=== PATIENT | female | born 1980 | race Caucasian/White ===

== ENCOUNTER 2017-01-12 20:02 | Emergency (ER) | payer OTHER ==
[~2017-01-12] VITALS: Ht 170.2 cm; Wt 80.7 kg
[2017-01-12 20:14] VITALS: TEMP 36.3; Ht 170.2 cm; Wt 80.7 kg
--- NOTE | 2017-01-12 20:49 | EMERGENCY ROOM VISIT NOTE ---
History Report prepared by Raghav: Zechariah Martin Under the Supervision of: Dr. Abner Cuevas M.D. First contact with patient: 20:36 Chief Complaint: HEAD INJURY (MINOR) Stated Complaint: CONCUSSION History of Present Illness The patient is a 36 year old female who presents to the Emergency Room with complaints of a minor head injury that occurred a couple of hours ago. She rates her pain a 7/10 in severity. Today, she remodelled her kitchen with her . After it was finished, she was putting dishes away in her cabinet when it fell partially off the wall and hit her in the head. The dishes also hit her in the head as well. She then began to be nauseated and vomited. Her head is still hurting. She notes fatigue as well. She denies any other pain or abnormal symptoms. She has a history of concussions that occurred when she was a child, but nothing recently. Source of History: patient Onset: a couple of hours ago Position: head Symptom Intensity: 7/10 Quality: ache Timing: constant Associated Symptoms: + fatigue, + nausea, + vomiting, No abdominal pain, No back pain, No chest pain, No neck pain, No urinary symptoms Review of Systems See HPI for pertinent positives & negatives. A total of 10 systems reviewed and were otherwise negative. Past Medical & Surgical Medical Problems: (1) Hypovolemia Family History Diabetes mellitus Social History Smoking Status: Current Every Day Smoker Smokeless Tobacco Use: Yes Alcohol Use: none Drug Use: none Marital Status: Housing Status: lives with family Occupation Status: employed Current/Historical Medications No Active Prescriptions or Reported Meds Allergies Coded Allergies: Mushroom (Verified Allergy, Intermediate, Nausea, 01/12/17) Physical Exam Vital Signs Date Time Temp Pulse Resp B/P Pulse Ox O2 Delivery O2 Flow Rate FiO2 01/12/17 22:09 62 18 114/72 98 01/12/17 20:14 36.3 93 18 132/91 99 Room Air Physical Exam GENERAL: Patient is uncomfortable appearing and in moderate acute distress. HEENT: No acute trauma, normocephalic atraumatic, mucous membranes moist, no nasal congestion, no scleral icterus. Mild photophobia. NECK: No stridor, no adenopathy, no meningismus, trachea is midline. LUNGS: No dyspnea. Clear to auscultation and equal bilaterally. No wheeze, no rhonchi. HEART: Regular rate and rhythm. No murmurs, rubs, gallops appreciated. ABDOMEN: Soft, nontender, bowel sounds positive, no masses appreciated, no peritonitis. BACK: No midline tenderness, no CVA tenderness EXTREMITIES: Normal motion all extremities, no cyanosis, no edema. NEUROLOGIC: Alert and oriented, no acute motor or sensory deficits, no focal weakness, cranial nerves grossly intact. GCS 15. SKIN: No rash, no jaundice, no diaphoresis. Medical Decision & Procedures ER Provider Diagnostic Interpretation: Radiology results are stated below per my review and radiologist interpretation: CT HEAD WITHOUT CONTRAST (CT) CLINICAL HISTORY: Left frontal head trauma. Vomiting, dizziness, photophobia. COMPARISON STUDY: No previous studies for comparison. TECHNIQUE: Axial CT of the brain is performed from the vertex to the skull base. IV contrast was not administered for this examination. CT DOSE: 614.27 mGy.cm FINDINGS: No intra or extra-axial mass lesions are visualized. There is no CT evidence of acute cortical infarction. There is no evidence of midline shift. There is no acute hemorrhage. No calvarial fractures are visualized. There is no evidence of pathologic ventricular dilatation. There is no evidence of acute sinusitis IMPRESSION: Normal noncontrast head CT. Electronically signed by: Freddy Beauchamp M.D. 01/12/2017 9:23 PM Dictated Date/Time: 01/12/2017 9:22 PM Medications Administered Medications (Trade) Dose Ordered Sig/Marsha Route Start Time Stop Time Status Last Admin Dose Admin Oxycodone/ Acetaminophen (Percocet 5-325mg Tab) 1 tab NOW ONCE PO 01/12/17 21:00 01/12/17 21:01 DC 01/12/17 20:57 1 TAB Ondansetron HCl (Zofran Odt) 4 mg ONE ONCE PO 01/12/17 21:00 01/12/17 21:01 DC 01/12/17 20:57 4 MG Ondansetron HCl (ZOFRAN ODT 4MG Home Pack) 1 homepack UD ONCE PO 01/12/17 21:45 01/12/17 21:46 DC 01/12/17 22:03 1 HOMEPACK Oxycodone/ Acetaminophen (Percocet 5/ 325MG Home Pack) 1 homepack UD ONCE PO 01/12/17 21:45 01/12/17 21:46 DC 01/12/17 22:03 1 HOMEPACK ED Course 2035: The patient was evaluated in room C8. A complete history and physical exam was performed. 2100: Ordered Zofran Odt 4 mg PO, Oxycodone/Acetaminophen 1 tab PO 2133: After reevaluation, the patient is feeling significantly better. She would like to go home. I advised her to rest and keep well hydrated for the next 48 hours. I also discussed with her concussion information. 2144: Ordered Oxycodone/Acetaminophen 1 homepack PO, Ondansetron HCl 1 homepack PO 2148: Reevaluated the patient. Discussed results and discharge instructions: She verbalized understanding and agreement. The patient is ready for discharge. Medical Decision Differential diagnoses include concussion, fracture, and ICH. Pleasant 36 yr old female with left head injury with nausea, vomiting, photophobia. No neck pain nor infectious findings. Given length of severity of symptoms felt CT head is indicated. Fortunately no acute findings. Patient with evidence of concussion. I have discussed at length approach to this. Will give limited # to go perc as with to avoid narcotics if at all possible due to concussion. Stable and comfortable with discharge. Impression Primary Impression: Concussion Additional Impression: Closed head injury Scribe Attestation The scribe's documentation has been prepared under my direction and personally reviewed by me in its entirety. I confirm that the note above accurately reflects all work, treatment, procedures, and medical decision making performed by me. Departure Information Dispostion Home / Self-Care Prescriptions No Active Prescriptions or Reported Meds Referrals Funmilayo Nolasco D.O. (PCP) Forms HOME CARE DOCUMENTATION FORM, IMPORTANT VISIT INFORMATION Patient Instructions ED Concussion, My [facility] Problem Qualifiers Primary Impression: Concussion Encounter type: initial encounter Loss of consciousness presence/duration: without LOC Qualified Codes: S06.0X0A - Concussion without loss of consciousness, initial encounter Additional Impression: Closed head injury Encounter type: initial encounter Qualified Codes: S09.90XA - Unspecified injury of head, initial encounter
[2017-01-12] MEDS ORDERED: OXYCODONE/ACETAMINOPHEN 5-325 TAB PO ONE (21:00)
[2017-01-12] MEDS ORDERED: ONDANSETRON 4MG OD TAB PO ONE (21:00)
--- NOTE | 2017-01-12 21:25 | DIAGNOSTIC IMAGING REPORT ---
CT HEAD WITHOUT CONTRAST (CT) CLINICAL HISTORY: Left frontal head trauma. Vomiting, dizziness, photophobia. COMPARISON STUDY: No previous studies for comparison. TECHNIQUE: Axial CT of the brain is performed from the vertex to the skull base. IV contrast was not administered for this examination. CT DOSE: 614.27 mGy.cm FINDINGS: No intra or extra-axial mass lesions are visualized. There is no CT evidence of acute cortical infarction. There is no evidence of midline shift. There is no acute hemorrhage. No calvarial fractures are visualized. There is no evidence of pathologic ventricular dilatation. There is no evidence of acute sinusitis IMPRESSION: Normal noncontrast head CT. Electronically signed by: Freddy Beauchamp M.D. 01/12/2017 9:23 PM Dictated Date/Time: 01/12/2017 9:22 PM
[2017-01-12] MEDS ORDERED: ONDANSETRON HOME PACK 4MG OD TAB PO ONE (21:45)
[2017-01-12] MEDS ORDERED: PERCOCET HOME PACK PO ONE (21:45)
[2017-01-12 22:09] VITALS: BP 114/72; PULSE 62; O2SAT 98
== END 2017-01-12 22:13 | disposition home or self-care (01) ==
LOC: C.EDB 20:04 → C.EDC 22:13
DX: S06.0X0A Concussion without loss of consciousness, initial encounter (principal); S09.90XA Unspecified injury of head, initial encounter; W20.8XXA Other cause of strike by thrown, projected or falling object, initial encounter; Y92.010 Kitchen of single-family (private) house as the place of occurrence of the external cause; F17.200 Nicotine dependence, unspecified, uncomplicated; Z91.018 Allergy to other foods; Z83.3 Family history of diabetes mellitus

== ENCOUNTER 2017-03-23 09:02 | Emergency (ER) | payer OTHER ==
[~2017-03-23] VITALS: Ht 170.2 cm; Wt 72.0 kg
[2017-03-23 09:05] VITALS: TEMP 36.5; Ht 170.2 cm; Wt 72.0 kg
--- NOTE | 2017-03-23 09:33 | EMERGENCY ROOM VISIT NOTE ---
History Report prepared by Raghav: Reina Byrnes Under the Supervision of: Dr. Meera Hernandez M.D. 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 The patient states that she was going to take her dog out this morning when she tripped over her dog and fell down 4 stairs. She states that she fell [id number]. At the time, she started to experience pain in her left ankle and left foot. She states that the pain has worsened since she fell. She rates her discomfort as an 8/10 in severity. The patient also has some pain in her left knee. She adds that it feels like the 4th and 5th digits of her left foot feel like they are "being electrocuted." The patient denies being on any blood thinners. 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 A total of 10 systems reviewed and were otherwise negative. Past Medical & Surgical Medical Problems: (1) Hypovolemia Surgical Problems: (1) History of breast augmentation Family History Diabetes mellitus Social History Smoking Status: Current Every Day Smoker Alcohol Use: none Drug Use: none Marital Status: Housing Status: lives with family Occupation Status: employed Current/Historical Medications No Active Prescriptions or Reported Meds Allergies Coded Allergies: Mushroom (Verified Allergy, Intermediate, Nausea, 03/23/17) Physical Exam Vital Signs Date Time Temp Pulse Resp B/P (MAP) Pulse Ox O2 Delivery O2 Flow Rate FiO2 03/23/17 10:40 85 18 112/79 100 03/23/17 09:05 36.5 85 18 110/79 100 Room Air Physical Exam Vital signs reviewed. General: Well-appearing female, in no significant distress. HEENT: No scleral icterus, PERRLA, neck supple. Atraumatic. Cardiovascular: Regular rate and rhythm, no extra sounds. Pulmonary: Clear to auscultation bilaterally, normal work of breathing. Abdomen: Soft, nontender, nondistended, positive bowel sounds. Musculoskeletal: Tender over left lateral malleolus, abrasion to the left first MTP with no significant edema or ecchymosis, pain with dorsiflexion and plantarflexion. There is no tenderness to palpation over the proximal fibula. Evaluation of the back reveals a nontender cervical, thoracic and lumbar spine. Neurologic: Patient awake alert and oriented x 3 Skin: Warm, dry, no rash Medical Decision & Procedures ER Provider Diagnostic Interpretation: Radiology results as stated below per my review and radiologist interpretation: LEFT KNEE 1 OR 2 VIEWS ROUTINE DISCUSSION: The bones and joint spaces appear intact. There is no evidence of fracture, dislocation or bony disease. There is no evidence for soft tissue swelling. IMPRESSION: Negative study. Electronically signed by: Chris Delgado M.D. 03/23/2017 10:08 AM Dictated Date/Time: 03/23/2017 10:08 AM LEFT ANKLE MIN 3 VIEWS ROUTINE DISCUSSION: The bones and joint spaces appear intact. There is no evidence of fracture, dislocation or bony disease. There is no evidence for soft tissue swelling. IMPRESSION: Negative study. Electronically signed by: Chris Delgado M.D. 03/23/2017 10:09 AM Dictated Date/Time: 03/23/2017 10:08 AM LEFT FOOT MIN 3 VIEWS ROUTINE DISCUSSION: The bones and joint spaces appear intact. There is no evidence of fracture, dislocation or bony disease. There is no evidence for soft tissue swelling. IMPRESSION: Negative study. Electronically signed by: Chris Delgado M.D. 03/23/2017 10:08 AM Dictated Date/Time: 03/23/2017 10:07 AM Medications Administered Medications (Trade) Dose Ordered Sig/Marsha Route Start Time Stop Time Status Last Admin Dose Admin Oxycodone/ Acetaminophen (Percocet 5-325mg Tab) 1 tab NOW ONCE PO 03/23/17 10:15 03/23/17 10:18 DC 03/23/17 10:29 1 TAB ED Course 0923: Past medical records reviewed. The patient was evaluated in room B10. A complete history and physical examination was performed. 1015: Ordered Oxycodone/Acetaminophen 1 tab PO 1016: Upon reevaluation, the patient appeared to have improvement of her symptoms. I discussed findings with her. She verbalized agreement of the treatment plan. She was discharged home. Medical Decision Differential diagnoses include but are not limited to: fracture, dislocation, contusion, strain, ligamentous injury, tendon rupture, and septic joint. Medication Reconciliation: I attest that I have personally reviewed the patient' s current medication list. Blood Pressure Screening: Patient was found to have normal blood pressure on screening and does not require follow-up. This patient was evaluated and appeared to be in no significant distress. Physical examination is fairly unrevealing. There is no appreciable swelling over the foot or ankle. There is no tenderness over the proximal fibula. X- rays of the knee, ankle and foot were obtained and are negative. The patient was given a Percocet tablet for her pain. She was given a gel splint and asked to use supportive shoes for ambulation. She was advised not to wear her flip- flops until the symptoms are resolved. She will follow-up with her physician/ orthopedics for reevaluation and return to the ER for worsening of symptoms or any medical concerns. [place] Drug Monitoring Program Search Results: patient reviewed within database, no issues identified Impression Primary Impression: Fall Additional Impression: Contusion of left ankle or foot Scribe Attestation The scribe's documentation has been prepared under my direction and personally reviewed by me in its entirety. I confirm that the note above accurately reflects all work, treatment, procedures, and medical decision making performed by me. Departure Information Dispostion Home / Self-Care Prescriptions No Active Prescriptions or Reported Meds Referrals Funmilayo Nolasco D.O. (PCP) Forms HOME CARE DOCUMENTATION FORM, IMPORTANT VISIT INFORMATION Patient Instructions My [facility] [employer] [facility] [employer] [place] Additional Instructions Diagnosis: Left foot and ankle contusion Ibuprofen 600 mg every 6 hours as needed for pain with food. Where the gel splint while on your feet with supportive sneakers. Ice and elevate intermittently for the next 24-48 hours. Return to the emergency department for worsening of symptoms or any medical concerns. Problem Qualifiers Primary Impression: Fall Encounter type: initial encounter Qualified Codes: W19.XXXA - Unspecified fall, initial encounter
--- NOTE | 2017-03-23 10:09 | DIAGNOSTIC IMAGING REPORT ---
LEFT FOOT MIN 3 VIEWS ROUTINE CLINICAL HISTORY: L foot pain, fall trauma. Pain. COMPARISON: None. DISCUSSION: The bones and joint spaces appear intact. There is no evidence of fracture, dislocation or bony disease. There is no evidence for soft tissue swelling. IMPRESSION: Negative study. Electronically signed by: Chris Delgado M.D. 03/23/2017 10:08 AM Dictated Date/Time: 03/23/2017 10:07 AM
--- NOTE | 2017-03-23 10:10 | DIAGNOSTIC IMAGING REPORT ---
LEFT KNEE 1 OR 2 VIEWS ROUTINE CLINICAL HISTORY: Left knee after fall trauma. Pain. COMPARISON: None. DISCUSSION: The bones and joint spaces appear intact. There is no evidence of fracture, dislocation or bony disease. There is no evidence for soft tissue swelling. IMPRESSION: Negative study. Electronically signed by: Chris Delgado M.D. 03/23/2017 10:08 AM Dictated Date/Time: 03/23/2017 10:08 AM
--- NOTE | 2017-03-23 10:10 | DIAGNOSTIC IMAGING REPORT ---
LEFT ANKLE MIN 3 VIEWS ROUTINE CLINICAL HISTORY: L ankle pain, fall trauma. Pain. COMPARISON: None. DISCUSSION: The bones and joint spaces appear intact. There is no evidence of fracture, dislocation or bony disease. There is no evidence for soft tissue swelling. IMPRESSION: Negative study. Electronically signed by: Chris Delgado M.D. 03/23/2017 10:09 AM Dictated Date/Time: 03/23/2017 10:08 AM
[2017-03-23] MEDS ORDERED: OXYCODONE/ACETAMINOPHEN 5-325 TAB PO ONE (10:15)
[2017-03-23 10:40] VITALS: BP 112/79; PULSE 85; O2SAT 100
== END 2017-03-23 10:40 | disposition home or self-care (01) ==
LOC: C.EDB 09:03
DX: S90.32XA Contusion of left foot, initial encounter (principal); S90.02XA Contusion of left ankle, initial encounter; W01.0XXA Fall on same level from slipping, tripping and stumbling without subsequent striking against object, initial encounter; Y92.019 Unspecified place in single-family (private) house as the place of occurrence of the external cause; F17.210 Nicotine dependence, cigarettes, uncomplicated

== ENCOUNTER 2017-10-20 07:55 | Emergency (ER) | payer OTHER ==
[~2017-10-20] VITALS: Ht 170.2 cm; Wt 71.0 kg
[2017-10-20 08:01] VITALS: TEMP 36.3; Ht 170.2 cm; Wt 71.0 kg
[2017-10-20] MEDS ORDERED: KETOROLAC TROMETHAMINE 30 MG/ML VIAL IV STA (08:28)
[2017-10-20 09:04] LABS: BASO % 0.4 %; BASO ABS # 0.03 K/uL (0-0.2); EOS % 1.7 %; EOS ABS # 0.14 K/uL (0-0.5); HEMATOCRIT 42.7 % (37-47); IG# 0.03 K/uL (0.00-0.02); LYMPH % 23.2 %; LYMPH ABS # 1.96 K/uL (1.2-3.4); MEAN CELL VOLUME 89.5 fL (80-100); MEAN CORPUSCULAR HEMOGLOBIN 31.4 pg (25-34); MEAN CORPUSCULAR HGB CONC 35.1 g/dl (32-36); MEAN PLATELET VOLUME 9.5 fL (7.4-10.4); MONO % 5.9 %; NEUT % 68.4 %; PLATELET COUNT 291 K/uL (130-400); RED CELL DISTRIBUTION WIDTH CV 13.2 % (11.5-14.5); RED CELL DISTRIBUTION WIDTH SD 43.2 fL (36.4-46.3); WHITE BLOOD COUNT 8.46 K/uL (4.8-10.8)
[2017-10-20 09:20] LABS: CALCIUM 8.8 mg/dl (8.5-10.1); CREATININE 0.67 mg/dl (0.60-1.20); POTASSIUM 4.1 mmol/L (3.5-5.1)
--- NOTE | 2017-10-20 10:05 | DIAGNOSTIC IMAGING REPORT ---
PELVIC ULTRASOUND, TRANSABDOMINAL HISTORY: Left lower abdominal pain. COMPARISON: Pelvic ultrasound 11/09/2015. FINDINGS: The patient deferred transvaginal scanning. Uterus: Unremarkable. Endometrial stripe: 8 mm in thickness. Right ovary: Normal in size. A few small follicles/cysts. Color-flow is suboptimally evaluated likely due to the transabdominal technique but the ovary echotexture is within normal limits. Left ovary: Normal in size. A few small follicles/cysts. Color-flow is suboptimally evaluated likely due to the transabdominal technique but the ovary echotexture is within normal limits. Miscellaneous:No pelvic free fluid. IMPRESSION: No significant abnormality identified within the pelvis. Electronically signed by: Karlos Jones M.D. 10/20/2017 10:03 AM Dictated Date/Time: 10/20/2017 9:50 AM
[2017-10-20 11:23] VITALS: BP 116/67; PULSE 75; O2SAT 98
--- NOTE | 2017-10-20 18:17 | EMERGENCY ROOM VISIT NOTE ---
History First contact with patient: 08:15 Chief Complaint: ABDOMINAL PAIN Stated Complaint: LOWER ABDOMINAL PAIN Nursing Triage Summary: patient states 2 weeks ago patient c/o "really bad cramps" I got my period. period ended 1 week ago. patient states she continue to have pain. patient c/o bilateral lower abdominal pain "taz where my ovaries are." pain radiates to lower back/tailbone area. today the pain is worsened. denies vomiting and diarrhea. patient states diarrhea on the 8th. hx ovarian cyst History of Present Illness The patient is a 37 year old white female who presents to the Emergency Room with complaints of bilateral lower abdominal pain, left greater than right that has been present for roughly 2 weeks. She states 2 weeks ago she had her menstrual cycle. She had really bad cramps at that point. Her period ended 1 week ago. Since then she has had continued pain. Pain has not gone away. She does have a history of ovarian cyst. She is wondering whether she has one now. No trauma to the back or abdomen. She denies any UTI symptoms. No urgency or burning. No frequency. She does have some flank pain. She feels better when standing and walking. Worse when laying down. No numbness or tingling. No loss of bowel or bladder control. No nausea or vomiting. She did have diarrhea 5 days ago, but this resolved on its own. Pain did increase while attempting to move her bowels this morning. She denies any hematuria or melena. No bloody stools. Her , accompanies her today. Review of Systems REVIEW OF SYSTEM: HEENT: No dizziness, visual problems, hearing loss, or tinnitus. There is no difficulty swallowing and no oral lesions are present. PULMONARY: No cough, shortness of breath, sputum production or hemoptysis. CARDIOVASCULAR: No chest pain, palpitations, shortness of breath or peripheral edema. GASTROINTESTINAL: No diarrhea, constipation, nausea, or vomiting. GENITOURINARY: No dysuria, frequency, urgency or nocturia. NEUROLOGIC: No weakness, muscle tenderness, epilepsy or history of neurological problems. MUSCULOSKELETAL: No history of joint tenderness/swelling. No history of arthritis or arthralgias. SKIN: No rashes or lesions. PSYCHIATRIC: No history of depression or mental illness. ENDOCRINE: No history of diabetes, thyroid disorders, or abnormal hair growth. Past Medical/Surgical History Medical Problems: (1) Hypovolemia Surgical Problems: (1) History of breast augmentation Family History Diabetes mellitus Social History Smoking Status: Current Every Day Smoker Smokeless Tobacco Use: No Alcohol Use: none Drug Use: none Marital Status: Housing Status: lives with family Occupation Status: employed Current/Historical Medications No Active Prescriptions or Reported Meds Allergies Coded Allergies: Mushroom (Verified Allergy, Intermediate, Nausea, 10/20/17) Physical Exam Vital Signs Date Time Temp Pulse Resp B/P (MAP) Pulse Ox O2 Delivery O2 Flow Rate FiO2 10/20/17 11:23 75 20 116/67 98 10/20/17 10:06 64 16 97/68 97 10/20/17 08:01 36.3 92 20 116/81 99 Room Air Physical Exam Gen.: Well-developed, well-nourished, young white female, in no acute distress. Obvious discomfort. Laying on a bed. Alert and oriented. Skin:Warm and dry with good turgor. No rashes or lesions. No ecchymosis or erythema. The patient is not diaphoretic. No abrasions. Heart: Heart RRR. No MGR. Peripheral pulses are 2+. Lungs: Lungs are clear to auscultation. No crackles rhonchi or wheezing. Good air movement. The patient is able to take a deep breath. Abdomen: Abdomen was inspected, auscultated, and palpated. Obese. Bowel sounds present x 4. Soft, lower quadrant discomfort with palpation, left greater than right. No hepato-splenomegaly. No masses noted. No rebound, negative Oquendo sign. Mild CVA tenderness. Moderate discomfort with palpation over the bladder. Musculoskeletal: Gross motor function of the upper and lower extremities is intact and unremarkable. Medical Decision & Procedures ER Provider Diagnostic Interpretation: Abdominal ultrasound obtained today was read by radiology as unremarkable. No evidence for ovarian cyst. Laboratory Results 10/20/17 08:50 Red Blood Count 4.77, Mean Corpuscular Volume 89.5, Mean Corpuscular Hemoglobin 31.4, Mean Corpuscular Hemoglobin Concent 35.1, Mean Platelet Volume 9.5, Neutrophils (%) (Auto) 68.4, Lymphocytes (%) (Auto) 23.2, Monocytes (%) (Auto) 5.9, Eosinophils (%) (Auto) 1.7, Basophils (%) (Auto) 0.4, Neutrophils # (Auto) 5.80, Lymphocytes # (Auto) 1.96, Monocytes # (Auto) 0.50, Eosinophils # (Auto) 0.14, Basophils # (Auto) 0.03 10/20/17 08:50 Test 10/20/17 08:34 10/20/17 08:50 Urine Color YELLOW Urine Appearance CLEAR (CLEAR) Urine pH 5.5 (4.5-7.5) Urine Specific [place] 1.017 (1.000-1.030) Urine Protein NEG (NEG) Urine Glucose (UA) NEG (NEG) Urine Ketones NEG (NEG) Urine Occult Blood TRACE (NEG) Urine Nitrite NEG (NEG) Urine Bilirubin NEG (NEG) Urine Urobilinogen NEG (NEG) Urine Leukocyte Esterase SMALL (NEG) Urine WBC (Auto) 1-5 /hpf (0-5) Urine RBC (Auto) 5-10 /hpf (0-4) Urine Hyaline Casts (Auto) 1-5 /lpf (0-5) Urine Epithelial Cells (Auto) >30 /lpf (0-5) Urine Bacteria (Auto) 1+ (NEG) Urine Test NEG (NEG) White Blood Count 8.46 K/uL (4.8-10.8) Red Blood Count 4.77 M/uL (4.2-5.4) Hemoglobin 15.0 g/dL (12.0-16.0) Hematocrit 42.7 % (37-47) Mean Corpuscular Volume 89.5 fL (80-100) Mean Corpuscular Hemoglobin 31.4 pg (25-34) Mean Corpuscular Hemoglobin Concent 35.1 g/dl (32-36) Platelet Count 291 K/uL (130-400) Mean Platelet Volume 9.5 fL (7.4-10.4) Neutrophils (%) (Auto) 68.4 % Lymphocytes (%) (Auto) 23.2 % Monocytes (%) (Auto) 5.9 % Eosinophils (%) (Auto) 1.7 % Basophils (%) (Auto) 0.4 % Neutrophils # (Auto) 5.80 K/uL (1.4-6.5) Lymphocytes # (Auto) 1.96 K/uL (1.2-3.4) Monocytes # (Auto) 0.50 K/uL (0.11-0.59) Eosinophils # (Auto) 0.14 K/uL (0-0.5) Basophils # (Auto) 0.03 K/uL (0-0.2) RDW Standard Deviation 43.2 fL (36.4-46.3) RDW Coefficient of Variation 13.2 % (11.5-14.5) Immature Granulocyte % (Auto) 0.4 % Immature Granulocyte # (Auto) 0.03 K/uL (0.00-0.02) Anion Gap 6.0 mmol/L (3-11) Est Creatinine Clear Calc Drug Dose 111.8 ml/min Estimated GFR () 130.1 Estimated GFR (Non- 112.3 BUN/Creatinine Ratio 17.5 (10-20) Calcium Level 8.8 mg/dl (8.5-10.1) CBC, PRP, UA, and urine culture were obtained. CBC and PRP are unremarkable. Urine appears to have contamination. It will be sent for culture. Medications Administered Medications (Trade) Dose Ordered Sig/Marsha Route Start Time Stop Time Status Last Admin Dose Admin Ketorolac Tromethamine (Toradol Inj) 30 mg NOW STAT IV 10/20/17 08:28 10/20/17 08:33 DC 10/20/17 08:53 30 MG Toradol 30 mg IV ED Course Patient and her were educated regarding today's findings. Conservative care measures were discussed. IV was established. She did receive Toradol 30 mg IV with some improvement in her discomfort. Labs were obtained. Abdominal ultrasound was obtained. These were all essentially unremarkable. Option of CT scan imaging of the abdomen and pelvis was discussed to rule out appendicitis , diverticulitis, colitis, and other intra-abdominal processes. The patient needed an informed choice to decline the CT scan. Risks and benefits were discussed. She elected to go home. She was informed that she may always come back for additional testing if desired. Return for any worsening symptoms. She may try Tylenol and Motrin for any mild discomfort. She'll be called if the urine culture returns positive. Follow-up with her PCP tomorrow for reexamination. Her is aware. Medical Decision Possibility of ovarian cyst, UTI, pyelonephritis, colitis, diverticulitis, appendicitis, obstruction, renal stone, and mittelschmerz were considered among others. Impression Primary Impression: Lower abdominal pain of unknown etiology Departure Information Dispostion Home / Self-Care Condition GOOD Prescriptions No Active Prescriptions or Reported Meds Forms Call Back Authorization, HOME CARE DOCUMENTATION FORM, MOTRIN USE, TYLENOL USE, IMPORTANT VISIT INFORMATION Patient Instructions My [facility] Additional Instructions Call your PCP tomorrow for follow-up appointment Return to the ED for any acute worsening of symptoms You'll be called if the urine culture returns positive Tylenol and Motrin every 6 hours as needed for mild discomfort
== END 2017-10-20 11:24 | disposition home or self-care (01) ==
LOC: C.EDB 07:57
DX: R10.30 Lower abdominal pain, unspecified (principal); F17.200 Nicotine dependence, unspecified, uncomplicated; Z98.82 Breast implant status; Z83.3 Family history of diabetes mellitus